=== PATIENT | male | born 1950 | race Caucasian/White ===

== ENCOUNTER 2019-04-11 05:34 | Inpatient (IN) | payer MEDICARE, BC ==
--- NOTE | 2019-03-30 14:20 | HP ---
HISTORY AND PHYSICAL: DATE OF ADMISSION: 04/11/19 He will be coming into [facility] on 04/11/19 for a left total hip replacement. CHIEF COMPLAINT: Left hip region pain laterally and some in the groin and marked limp and limited walking activities over the last couple years. HISTORY OF PRESENT ILLNESS: He is status post a right total hip replacement in 2011. 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 He is on his feet all day and he has had increasing problems for the last couple of years. Left hip replacement was requested and recommended. PAST MEDICAL HISTORY: His functional status is that he can walk up 2 flights of stairs without chest pain, without shortness of breath. No diabetes. He has had prostate cancer with removal and his followup has been very benign. No past heart attack. No chest pain. No pulmonary problems. He thinks he may have had bronchitis and he was recently put on Symbicort. MEDICATIONS: His other medications include: 1. Hydrochlorothiazide. 2. Simvastatin. 3. Amlodipine 5 mg. 4. Ibuprofen 800 mg t.i.d. as necessary and he tries to avoid the ibuprofen and he will be avoiding it before surgical care. ALLERGIES: No allergies. FAMILY HISTORY: Positive for cancer. Negative for diabetes and cardiac. SOCIAL HISTORY: He gave up smoking in 1982. He has less than 1 alcoholic beverage per week. 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 He lives with his and his 2 sons. PHYSICAL EXAMINATION GENERAL: His gait is antalgic on the left. VITAL SIGNS: Temp 96.9, blood pressure 140/88, pulse 74. Weight 250, height 5 feet 11 inches. HEENT: The head is NC/AT. Cranial nerves are grossly intact. LUNGS: Clear bilaterally. HEART: Regular. S1, S2 normal. No murmurs or gallops. ABDOMEN: Soft, nontender. No organomegaly is appreciated. EXTREMITIES: Straight leg raising is easy on the right and it is painful on the left producing some anterolateral left hip discomfort. Left hip abduction is 25 degrees with lateral hip pain. His forward elevation is just 40 to 50 degrees with anterolateral left hip pain as well and his rotations are very limited. ER 10, IR -10. The left foot pulse is intact. No swelling of the knees. No swelling of ankles and feet. DIAGNOSTIC STUDIES: Radiographs show [id number] arthritis of the left hip and osteophyte formation. IMPRESSION: Severe arthritis of the left hip. PLAN: Left total hip replacement. The goals, risks, and complications of the surgical care were reviewed with him today and his questions were answered and we will proceed with it on 04/11/19. [id number]/[facility] #: [id number] WILFREDO
[~2019-04-11 05:34] MED LIST: Buffered Lidocaine 1% SYRIN* 1 ML/SYRINGE INTRADERM ONE; Lactated Ringers 1000 ML Bag* 1,000 ML IV SCH; Tranexamic Acid 1,000 MG in NS 0.9% 50 ML* (outpatient use) IV SCH
--- OUTSIDE RECORDS SUMMARY | 2019-04-11 05:39 | XMS REPORT | Continuity of Care Document ---
:1950 External Reference #:[id number] Author Name Farshad Mckeon M.D. (transmitted by agent of provider Jayashree Murrell) Address [address] [place] [address] Care Team Providers Name Role Phone Mehdi Gurrola MD - Internal Care Team Information [place] Tax [employer] Medicine Problems Description No Information Available Social History Type Date Description Comments Sex Unknown ETOH Use Rarely consumes alcohol Tobacco Use Start: Unknown End: Patient is a former smoker quit in 1981 Unknown Smoking Status Reviewed: 03/30/19 Patient is a former smoker quit in 1981 Exercise Type/Frequency Exercises regularly Allergies, Adverse Reactions, Alerts Description No Known Drug Allergies Medications Active Medications SIG Qnty Indications Ordering Date Provider Ibuprofen po tid prn 90tabs Farshad Mckeon, 01/01/2011 800mg Tablets M.D. Amlodipine Besylate Unknown Simvastatin 1 by mouth Unknown 40mg Tablets every day Probiotic 1 by mouth Unknown Capsules every day Hydrochlorothiazide 1 by mouth Unknown 25mg Tablets every day Multi Vitamin Daily 1 by mouth Unknown Tablets every day Teague 3 Unknown Symbicort inhale 2 puff Unknown 80-4.5mcg/Act Aerosol twice daily; rinse mouth after use Immunizations Description No Information Available Vital Signs Date Vital Result Comment 03/30/2019 10:53am Height 72 inches 6'0" Weight 250.00 lb Heart Rate 74 /min BP Systolic 140 mmHg BP Diastolic 88 mmHg Respiratory Rate 16 /min Body Temperature 96.9 F Pain Level 4 BMI (Body Mass Index) 33.9 kg/m2 01/05/2019 8:37am Height 72 inches 6'0" Weight 256.00 lb Heart Rate 76 /min BP Systolic 160 mmHg BP Diastolic 92 mmHg Respiratory Rate 14 /min Pain Level 4 BMI (Body Mass Index) 34.7 kg/m2 Results Test Acquired Date Facility Test Result H/L Range Note Urinalysis Profile 03/15/2019 [facility] Urine Color Yellow [address] [place] [address] [phone] Urine Appearance Clear Urine Specific Gilchrist 1.019 Normal 1.010-1.030 Urine pH 6.0 Normal 5-9 Urine Urobilinogen Negative Negative Urine Ketones Negative Negative Urine Protein Negative Negative Urine Leukocytes Negative Negative Urine Blood Negative Negative * * Abnormal Negative 1 Urine Nitrite Negative Negative Urine Bilirubin Negative Negative Urine Glucose Negative Negative CBC Auto 03/15/2019 [facility] White Blood 7.7 10^3/uL Normal 3.5-10.[address] [place] [address] [phone] Red Blood Count 5.39 10^6/uL Normal 4.18-5.48 Hemoglobin 15.8 g/dL Normal 14.0-18.0 Hematocrit 46 % Normal 42-52 Mean Corpuscular Volume 85 fL Normal 80-94 Mean Corpuscular Hemoglobin 29 pg Normal 27-31 Mean Corpuscular HGB Conc 34 g/dL Normal 31-36 Red Cell Distribution Width 14 % Normal 10-15 Platelet Count 221 10^3/uL Normal 150-450 Mean Platelet Volume 8.7 fL Normal 7.4-10.4 Abs Neutrophils 4.8 10^3/uL Normal 1.5-7.7 Abs Lymphocytes 2.0 10^3/uL Normal 1.0-4.8 Abs Monocytes 0.7 10^3/uL Normal 0-0.8 Abs Eosinophils 0.1 10^3/uL Normal 0-0.6 Abs Basophils 0.0 10^3/uL Normal 0-0.2 Abs Nucleated RBC 0.0 10^3/uL Granulocyte % 62.3 % Lymphocyte % 26.2 % Monocyte % 9.4 % Eosinophil % 1.7 % Basophil % 0.4 % Nucleated Red Blood Cells % 0.1 Inr/Protime 03/15/2019 [facility] Inr 0.97 Normal 0.82-1.[address] [place] [address] [phone] Comp Metabolic 03/15/2019 [facility] Sodium 137 mmol/L Normal 135-[address] [place] [address] [phone] Potassium 4.1 mmol/L Normal 3.5-5.0 Chloride 101 mmol/L Normal 101-111 Co2 Carbon Dioxide 26 mmol/L Normal 22-32 Anion Gap 10 mmol/L Normal 2-11 Glucose 94 mg/dL Normal 70-100 Blood Urea Nitrogen 18 mg/dL Normal 6-24 Creatinine 0.71 mg/dL Normal 0.67-1.17 BUN/Creatinine Ratio 25.4 High 8-20 Calcium 9.9 mg/dL Normal 8.6-10.3 Total Protein 7.5 g/dL Normal 6.4-8.9 Albumin 4.6 g/dL Normal 3.2-5.2 Globulin 2.9 g/dL Normal 2-4 Albumin/Globulin Ratio 1.6 Normal 1-3 Total Bilirubin 0.70 mg/dL Normal 0.2-1.0 Alkaline Phosphatase 80 U/L Normal 34-104 Alt 51 U/L Normal 7-52 Ast 29 U/L Normal 13-39 Egfr Non- 110.3 >60 Egfr 133.5 >60 3 1 *Ascorbic acid is present which may interfere with detection of blood. 2 Standard intensity warfarin therapeutic range: 2.0-3.0 High intensity warfarin therapeutic range: 2.5-3.5 3 Because ethnic data is not always readily available, this report includes an eGFR for both -Americans and non- Americans. The National Kidney Disease Education Program (NKDEP) does not endorse the use of the MDRD equation for patients that are not between the ages of 18 and 70, are , have extremes of body size, muscle mass, or nutritional status, or are non- or non-. According to the National Kidney Foundation, irrespective of diagnosis, the stage of the disease is based on the level of kidney function: Stage Description GFR(mL/min/1.73 m(2)) 1 Kidney damage with normal or decreased GFR 90 2 Kidney damage with mild decrease in GFR 60-89 3 Moderate decrease in GFR 30-59 4 Severe decrease in GFR 15-29 5 Kidney failure <15 (or dialysis) Procedures Description No Information Available Medical Devices Description No Information Available Encounters Type Date Location Provider Dx Diagnosis Office Visit 01/05/2019 [facility] Farshad Mckeon M.D. M16.12 Unilateral primary 8:00a at [place] osteoarthritis, left hip Assessments Date Code Description Provider 03/30/2019 M16.12 Unilateral primary osteoarthritis, left hip Farshad Mckeon M.D. 03/30/2019 Z96.641 Presence of right artificial hip joint Farshad Mckeon M.D. 01/05/2019 M16.12 Unilateral primary osteoarthritis, left hip Farshad Mckeon M.D. Plan of Treatment Future Appointment(s):04/27/2019 10:45 am - Farshad Mckeon M.D. at [facility] at Vxggcq1104/11/2019 11:00 am - Farshad Mckeon M.D. at [facility] at Qhnrcd2203/30/2019 - Farshad Mckeon M.D.M16.12 Unilateral primary osteoarthritis, left hipFollow up:Follow up: Left total hip 04/11/19 Stay active until then and ertxjF09.641 Presence of right artificial hip joint Functional Status Description No Information Available Mental Status Description No Information Available Referrals Description No Information Available
--- OUTSIDE RECORDS SUMMARY | 2019-04-11 05:39 | XMS REPORT | Continuity of Care Document ---
:1950 External Reference #:[id number] Author Name Maite Rojas (transmitted by agent of provider Abiodun Lamar) Address [address] [place] [id number] Care Team Providers Name Role Phone Casper Naranjo MD - Urology Care Team Information Dock Boss [phone] [facility] - Care Team Information Dock Boss [phone] Gastroenterology Problems Active Problems Provider Date Benign essential hypertension Mehdi Gurrola M.D. Onset: 06/19/2006 Carcinoma in situ of prostate Mehdi Gurrola M.D. Onset: 06/19/2006 Pure hypercholesterolemia Mehdi Gurrola M.D. Onset: 07/12/2007 Localized, primary osteoarthritis of the Mehdi Gurrola M.D. Onset: 2010 pelvic region and thigh History of malignant neoplasm of prostate Mehdi Gurrola M.D. Onset: 2015 Social History Type Date Description Comments Sex Unknown Tobacco Use Start: Unknown End: Unknown Does Not Smoke Cigarettes Smoking Status Reviewed: 02/28/19 Does Not Smoke Cigarettes ETOH Use Rare Alcohol Use Recreational Drug Use Never Used Drugs Tobacco Use Start: Unknown Non Smoker Allergies, Adverse Reactions, Alerts Active Allergies Reaction Severity Comments Date No Known Drug Allergy 05/24/2010 Medications Active Medications SIG Qnty Indications Ordering Date Provider Symbicort 2 puffs 2x/day; 20.4gm Brianda, 02/28/2019 80-4.5mcg/Act Aerosol gargle after use Erlin Rascon Amlodipine Besylate Take One Tablet 90tabs I10 Silcoff, 05/29/2017 5mg Tablets By Mouth Once Tianna Harding Daily For High Blood Pressure Simvastatin take one half 90tabs E78.00 Silco, 07/16/2016 40mg Tablets tablet by mouth Tianna Harding every day for high cholesterol Ibuprofen 1 by mouth every 90tabs M25.552 Silco, 07/16/2016 800mg Tablets 8 hours as needed Tianna Harding for hip pain Probiotic daily Unknown 05/13/2015 Capsules Hydrochlorothiazide Take One Tablet 90tabs I10 , 06/20/2011 25mg By Mouth Every Tianna Harding Tablets Morning For High Blood Pressure Vitamin C 1 po qd OTC Unknown 03/31/2011 500mg Tablets [place] III Epa+Dha One Capsule PO OTC Unknown 03/31/2011 1000mg/200mg Daily Capsules Multivitamin & Mineral one tab daily Silco, 05/23/2010 Tianna Harding Medications Administered in Office Medication SIG Qnty Indications Ordering Provider Date H1N1 Swine Flu Vaccine Mehdi Gurrola M.D. 05/11/2009 Injection Immunizations CPT Code Status Date Vaccine Lot # [id number] Given 02/16/2019 Shingrix Zoster (Shingles) Vaccine (HZV) Recomb,Subnit,Adjuvanted 84772 Given 01/28/2019 Influenza Virus Vaccine, Quadrivalent, Split, Preservative Free 95301 Given 03/18/2018 Pneumococcal Immunization [id number] 90531 Given 03/18/2018 Td Immunization [id number] 00317 Given 02/20/2018 Influenza Vaccine Split Virus Preservative Free [place] Use 97111 Given 03/05/2017 Influenza Vaccine Split Virus Preservative Free Im Use 09567 Given 07/16/2016 Prevnar 13 [id number] 76808 Given 03/18/2016 Influenza Virus Vaccine, Quadrivalent, Split, Preservative Free 02034 Given 04/27/2015 Flu, Split Virus 3Yrs 25650 Given 02/10/2014 Flu, Split Virus 3Yrs 62424 Given 01/21/2012 Flu, Split Virus 3Yrs [id number] 58667 Given 04/01/2011 Zostavax [id number] 12998 Given 04/01/2011 Flu, Split Virus 3Yrs [id number] 59522 Given 01/18/2010 Flu, Split Virus 3Yrs 19971 Given 05/11/2009 Flu Vaccine; Split Virus [employer] [id number] 22230 Given 08/24/2007 Adacel or Boostrix, TDaP [id number] Vital Signs Date Vital Result Comment 02/28/2019 9:04am BP Systolic 136 mmHg BP Diastolic 80 mmHg Height 71.5 inches 5'11.50" Weight 251.00 lb BMI (Body Mass Index) 34.5 kg/m2 10/11/2018 10:17am BP Systolic 148 mmHg BP Diastolic 82 mmHg BP Systolic Recheck 134 mmHg R arm sitting BP Diastolic Recheck 86 mmHg R arm sitting Heart Rate 64 /min reg Respiratory Rate 14 /min not laboured Height 71.75 inches 5'11.75" Weight 254.00 lb BMI (Body Mass Index) 34.7 kg/m2 Results Description No Information Available Procedures Date Code Description Status 02/28/2019 28039U Visual Acuity Screening Test - for Dot exams Completed 10/11/2018 12272 Electrocardiogram Complete Completed 09/29/2018 40287256 Colonoscopy Completed Medical Devices Description No Information Available Encounters Description No Information Available Assessments Date Code Description Provider 02/28/2019 Z02.4 Encounter for examination for driving Abiodun Lamar D.O. license 02/28/2019 I10 Essential (primary) hypertension Abiodun Lamar D.O. 02/28/2019 E78.00 Pure hypercholesterolemia, unspecified Abiodun Lamar D.O. 02/28/2019 Z68.34 Body mass index (BMI) 34.0-34.9, adult Abiodun Lamar D.O. 10/11/2018 Z00.01 Encounter for general adult medical Mehdi Gurrola M.D. examination with abnorma 10/11/2018 I10 Essential (primary) hypertension Mehdi Gurrola M.D. 10/11/2018 E78.00 Pure hypercholesterolemia, unspecified Mehdi Gurrola M.D. 10/11/2018 Z86.010 Personal history of colonic polyps Mehdi Gurrola M.D. 10/11/2018 B37.2 Candidiasis of skin and nail Mehdi Gurrola M.D. 10/11/2018 M25.552 Pain in left hip Mehdi Gurrola M.D. 10/11/2018 Z68.34 Body mass index (BMI) 34.0-34.9, adult Mehdi Gurrola M.D. Plan of Treatment Future Appointment(s):04/06/2019 9:40 am - Karen Sweet PA at [facility] Vjtosy9402/2019 - Abiodun Lamar D.O.Z02.4 Encounter for examination for driving licenseFollow up:As scheduled in March 2019 [address] 6 months DM w/ HSI10 Essential (primary) iguvrqkflcmzI52.00 Pure hypercholesterolemia, zyjbcvixfnoK74.34 Body mass index (BMI) 34.0-34.9, adult Functional Status Description No Information Available Mental Status Description No Information Available Referrals Description No Information Available
--- OUTSIDE RECORDS SUMMARY | 2019-04-11 05:39 | XMS REPORT | Continuity of Care Document ---
:1950 External Reference #:[id number] Author Name Abiodun Lamar D.O. Address [address] [place] [id number] Care Team Providers Name Role Phone Casper Naranjo MD - Urology Care Team Information Cinnamon Grinder [phone] [facility] - Care Team Information Cinnamon Grinder [phone] Gastroenterology Problems Active Problems Provider Date Benign [...] Pressure Simvastatin take one half 90tabs E78.00 Silcoff, 07/16/2016 40mg Tablets tablet by mouth Tianna Harding every day for high cholesterol Ibuprofen 1 by mouth every 90tabs M25.552 co, 07/16/2016 800mg Tablets 8 hours as needed Tianna Harding for hip pain Probiotic daily Unknown 05/13/2015 Capsules Hydrochlorothiazide Take One Tablet 90tabs I10 , 06/20/2011 25mg By Mouth Every Tianna Harding Tablets Morning For High Blood Pressure Vitamin C 1 po qd OTC Unknown 03/31/2011 500mg Tablets [place] III Epa+Dha One Capsule PO OTC Unknown 03/31/2011 1000mg/200mg Daily Capsules Multivitamin & Mineral one tab daily Silco, 05/23/2010 Tianna Harding Medications Administered in Office Medication SIG Qnty Indications Ordering Provider Date H1N1 Swine Flu Vaccine Mehdi Gurrola M.D. 05/11/2009 Injection Immunizations CPT Code Status Date Vaccine Lot # [id number] Given 02/16/2019 Shingrix Zoster (Shingles) Vaccine (HZV) Recomb,Subnit,Adjuvanted 82742 Given 01/28/2019 Influenza Virus Vaccine, Quadrivalent, Split, Preservative Free 09889 Given 03/18/2018 Pneumococcal Immunization [id number] 67387 Given 03/18/2018 Td Immunization [id number] 36419 Given 02/20/2018 Influenza Vaccine Split Virus Preservative Free Im Use 02514 Given 03/05/2017 Influenza Vaccine Split Virus Preservative Free [place] Use 36156 Given 07/16/2016 Prevnar 13 [id number] 05357 Given 03/18/2016 Influenza Virus Vaccine, Quadrivalent, Split, Preservative Free 26601 Given 04/27/2015 Flu, Split Virus 3Yrs 36367 Given 02/10/2014 Flu, Split Virus 3Yrs 78271 Given 01/21/2012 Flu, Split Virus 3Yrs [id number] 42691 Given 04/01/2011 Zostavax [id number] 07509 Given 04/01/2011 Flu, Split Virus 3Yrs [id number] 88136 Given 01/18/2010 Flu, Split Virus 3Yrs 36707 Given 05/11/2009 Flu Vaccine; Split Virus [employer] [id number] 55352 Given 08/24/2007 Adacel or Boostrix, TDaP [id number] Vital Signs Date Vital Result Comment 02/28/2019 [...] Available Procedures Date Code Description Status 02/28/2019 59633N Visual Acuity Screening Test - for Dot exams Completed 10/11/2018 23527 Electrocardiogram Complete Completed 09/29/2018 83779449 Colonoscopy Completed Medical Devices Description No Information [...] am - Karen Sweet PA at [facility] Imtxqd1902/2019 - Abiodun Lamar D.O.Z02.4 Encounter for examination for driving licenseFollow up:As scheduled in March 2019 [address] 6 months DMHM w/ HSI10 Essential (primary) tvpliabtcmbhF92.00 Pure hypercholesterolemia, jeprlhhyxuiT09.34 Body mass index (BMI) 34.0-34.9, adult Functional Status Description No Information Available Mental Status Description No Information Available Referrals Description No Information Available
--- OUTSIDE RECORDS SUMMARY | 2019-04-11 05:39 | XMS REPORT | Continuity of Care Document ---
:1950 External Reference #:[id number] Author Name Abiodun Lamar D.O. Address [address] [place] [phone] Care Team Providers Name Role Phone Casper Naranjo MD - Urology Care Team Information Assisted Living Nursing Director [phone] [facility] - Care Team Information Assisted Living Nursing Director [phone] Gastroenterology Problems Active Problems Provider Date Benign [...] po qd OTC Unknown 03/31/2011 500mg Tablets [place] III Epa+Dha One Capsule PO OTC Unknown 03/31/2011 1000mg/200mg Daily Capsules Multivitamin & Mineral one tab daily Silco, 05/23/2010 Tianna Harding Medications Administered in Office Medication SIG Qnty Indications Ordering Provider Date H1N1 Swine Flu Vaccine Mehdi Gurrola M.D. 05/11/2009 Injection Immunizations CPT Code Status Date Vaccine Lot # [id number] Given 02/16/2019 Shingrix Zoster (Shingles) Vaccine (HZV) Recomb,Subnit,Adjuvanted 73370 Given 01/28/2019 Influenza Virus Vaccine, Quadrivalent, Split, Preservative Free 73277 Given 03/18/2018 Pneumococcal Immunization [id number] 61774 Given 03/18/2018 Td Immunization [id number] 20180 Given 02/20/2018 Influenza Vaccine Split Virus Preservative Free Im Use 17317 Given 03/05/2017 Influenza Vaccine Split Virus Preservative Free Im Use 88179 Given 07/16/2016 Prevnar 13 [id number] 92623 Given 03/18/2016 Influenza Virus Vaccine, Quadrivalent, Split, Preservative Free 33439 Given 04/27/2015 Flu, Split Virus 3Yrs 60971 Given 02/10/2014 Flu, Split Virus 3Yrs 39990 Given 01/21/2012 Flu, Split Virus 3Yrs [id number] 04891 Given 04/01/2011 Zostavax [id number] 56427 Given 04/01/2011 Flu, Split Virus 3Yrs [id number] 87560 Given 01/18/2010 Flu, Split Virus 3Yrs 07737 Given 05/11/2009 Flu Vaccine; Split Virus Numerous [id number] 79806 Given 08/24/2007 Adacel or Boostrix, TDaP [id number] Vital Signs Date Vital Result Comment 02/28/2019 [...] Available Procedures Date Code Description Status 02/28/2019 51212V Visual Acuity Screening Test - for Dot exams Completed 10/11/2018 49111 Electrocardiogram Complete Completed 09/29/2018 06817920 Colonoscopy Completed Medical Devices Description No Information [...] am - Karen Sweet PA at [facility] Esykht4402/2019 - Abiodun Lamar D.O.Z02.4 Encounter for examination for driving licenseFollow up:As scheduled in March 2019 [address] 6 months DMHM w/ HSI10 Essential (primary) umqelmwrmcikU65.00 Pure hypercholesterolemia, tzmwxiymirpF05.34 Body mass index (BMI) 34.0-34.9, adult Functional Status Description No Information Available Mental Status Description No Information Available Referrals Description No Information Available
--- OUTSIDE RECORDS SUMMARY | 2019-04-11 05:39 | XMS REPORT | Continuity of Care Document ---
:1950 External Reference #:[id number] Author Name Karen Sweet PA (transmitted by agent of provider Mehdi Gurrola) Address [address] [place] [address], [facility] [address] [place] [address] Care Team Providers Name Role Phone Casper Naranjo MD - Urology Care Team Information Steaming Cabinet Tender [phone] Chris GI Department - Care Team Information Steaming Cabinet Tender [phone] Gastroenterology Farshad Mckeon MD - Orthopaedic Care Team Information Steaming Cabinet Tender [phone] Surgery Problems Active Problems Provider Date Benign essential [...] Does Not Smoke Cigarettes Smoking Status Reviewed: 03/15/19 Does Not Smoke Cigarettes ETOH Use Rare Alcohol Use Recreational Drug Use Never Used Drugs Tobacco Use Start: Unknown Non Smoker Allergies, Adverse Reactions, Alerts Active Allergies Reaction Severity Comments Date No Known Drug Allergy 05/24/2010 Medications Active Medications SIG Qnty Indications Ordering Date Provider Symbicort 2 puffs 2x/day; 20.4gm Sopchak, 02/28/2019 80-4.5mcg/Act Aerosol gargle after use Erlin Rascon Amlodipine Besylate Take One Tablet 90tabs I10 Silcoff, 05/29/2017 5mg Tablets By Mouth Once Tianna Harding Daily For High Blood Pressure Simvastatin take one half 90tabs E78.00 Silcoff, 07/16/2016 40mg Tablets tablet by mouth Tianna Harding every day for high cholesterol Ibuprofen 1 by mouth every 90tabs M25.552 Silcoff, 07/16/2016 800mg Tablets 8 hours as needed Tianna Harding for hip pain Probiotic daily Unknown 05/13/2015 Capsules Hydrochlorothiazide Take One Tablet 90tabs I10 Silcoff, 06/20/2011 25mg By Mouth Every Tianna Harding Tablets Morning For High Blood Pressure Vitamin C 1 po qd OTC Unknown 03/31/2011 500mg Tablets Cody III Epa+Dha One Capsule PO OTC Unknown 03/31/2011 1000mg/200mg Daily Capsules Multivitamin & Mineral one tab daily Silco, 05/23/2010 Tianna Harding Medications Administered in Office Medication SIG Qnty Indications Ordering Provider Date H1N1 Swine Flu Vaccine Mehdi Gurrola M.D. 05/11/2009 Injection Immunizations CPT Code Status Date Vaccine Lot # [id number] Given 02/16/2019 Shingrix Zoster (Shingles) Vaccine (HZV) Recomb,Subnit,Adjuvanted 11243 Given 01/28/2019 Influenza Virus Vaccine, Quadrivalent, Split, Preservative Free 70120 Given 03/18/2018 Pneumococcal Immunization [id number] 48327 Given 03/18/2018 Td Immunization [id number] 39626 Given 02/20/2018 Influenza Vaccine Split Virus Preservative Free Im Use (hi-dose) 54798 Given 03/05/2017 Influenza Vaccine Split Virus Preservative Free Im Use (hi-dose) 30039 Given 07/16/2016 Prevnar 13 [id number] 83932 Given 03/18/2016 Influenza Virus Vaccine, Quadrivalent, Split, Preservative Free 09169 Given 04/27/2015 Flu, Split Virus 3Yrs 95567 Given 02/10/2014 Flu, Split Virus 3Yrs 37658 Given 01/21/2012 Flu, Split Virus 3Yrs [id number] 09245 Given 04/01/2011 Zostavax [id number] 35019 Given 04/01/2011 Flu, Split Virus 3Yrs [id number] 49387 Given 01/18/2010 Flu, Split Virus 3Yrs 59805 Given 05/11/2009 Flu Vaccine; Split Virus WorldWinger [id number] 50022 Given 08/24/2007 Adacel or Boostrix, TDaP [id number] Vital Signs Date Vital Result Comment 03/15/2019 10:29am BP Systolic 134 mmHg BP Diastolic 70 mmHg Weight 256.00 lb 02/28/2019 9:04am BP Systolic 136 mmHg BP Diastolic 80 mmHg Height 71.5 inches 5'11.50" Weight 251.00 lb BMI (Body Mass Index) 34.5 kg/m2 Results Test Acquired Date Facility Test Result H/L Range Note Ua Inhouse 02/28/2019 In House Ua Glucose - 1 Ua Bilirubin - Ua Ketones - Ua Specific [place] 1.015 Ua Blood - Ua PH 6.0 Ua Protein tr Ua Urobilinogen - Ua Nitrite - Ua Leukocytes - 1 void, clear, gold Procedures Date Code Description Status 02/28/2019 77858C Visual Acuity Screening Test - for Dot exams Completed 10/11/2018 68314 Electrocardiogram Complete Completed 09/29/2018 78982977 Colonoscopy Completed Medical Devices Description No Information Available Encounters Type Date Location Provider Dx Diagnosis Office Visit 03/15/2019 Main Office Karen Sweet PA Z01.818 Encounter for other 10:05a preprocedural examination M16.12 Unilateral primary osteoarthritis, left hip I10 Essential (primary) hypertension R05 Cough Office Visit 02/28/2019 8:55a Main Office Abiodun Lamar, Z02.4 Encounter for D.O. examination for driving license I10 Essential (primary) hypertension E78.00 Pure hypercholesterolemia, unspecified Z68.34 Body mass index (BMI) 34.0-34.9, adult Assessments Date Code Description Provider 03/15/2019 Z01.818 Encounter for other preprocedural Karen Sweet PA examination 03/15/2019 M16.12 Unilateral primary osteoarthritis, left hip Karen Sweet PA 03/15/2019 I10 Essential (primary) hypertension Karen Sweet PA 03/15/2019 R05 Cough Karen Sweet PA 02/28/2019 Z02.4 Encounter for examination for driving [...] Mehdi Gurrola M.D. Plan of Treatment Future Appointment(s):02/13/2020 8:55 am - Abiodun Lamar D.O. at Main [id number]/15/2019 - Karen Sweet, PAZ01.818 Encounter for other preprocedural examinationComments:Patient is at average risk for surgery, and is cleared for planned procedure without additional cardiac testing based on ACC/AHA guidelines (patient with good functional capacity), provided labs are within acceptable range.Patient has no prior anesthetic related complications.He was advised to inform the surgeon of any acute illness which may occur between now and surgical date. This consultation has been faxed to the referring physician.Studies:EKG dated 10/11/18 - Sinus rhythm with borderline LAD,no significant change from 06/10/13. Vent rate 64, Maye 152, QRSd 89, QT/QTc 395/405 , P-R-T axes 43/-29/36.Labs - CMP, CBC, INR, UA drawn in office today. Results pending, will be copied to surgeon.M16.12 Unilateral primary osteoarthritis, left hipComments:Left total hip replacement to be done as above.I10 Essential ( primary) hypertensionComments:Good control on current meds, continue same.R05 CoughComments:Continue symbicort 160mg for winter months, taper off with lower dose in spring. Functional Status Description No Information Available Mental Status Description No Information Available Referrals Description No Information Available
--- OUTSIDE RECORDS SUMMARY | 2019-04-11 05:39 | XMS REPORT | Continuity of Care Document ---
:1950 External Reference #:[id number] Author Name Jael Cueva MD, [facility] (transmitted by agent of provider Genet Loja) Address [address] [address] Care Team Providers Name Role Phone Mehdi Gurrola MD - Internal Care Team Information Escort Service Attendant Medicine Problems Description No Information Available Social [...] 1 by mouth Unknown Tablets every day [place] 3 Unknown Symbicort inhale 2 puff Unknown [...] Test Result H/L Range Note Urinalysis Profile 03/30/2019 [facility] Urine Color Yellow [address] [place] [address] [phone] Urine Appearance Clear Urine Specific [place] 1.020 Normal 1.010-1.030 Urine pH 5.0 Normal 5-9 Urine Urobilinogen Negative Negative Urine Ketones Negative Negative Urine Protein Negative Negative Urine Leukocytes Negative Negative Urine Blood Negative Negative * * Abnormal Negative 1 Urine Nitrite Negative Negative Urine Bilirubin Negative Negative Urine Glucose Negative Negative Inr/Protime 03/30/2019 [facility] Inr 0.99 Normal 0.82-1.[address] [place] [address] [phone] Laboratory test 03/30/2019 [facility] Partial 35.1 Normal 26.0 -38.[address] [place] [address] Time PTT [phone] Type & Screen 03/30/2019 [facility] Patient A Positive [address] [place] [place] [address] [phone] Antibody Screen NEGATIVE Urine Culture And 03/30/2019 [facility] Urine Culture SEE RESULT [address] [place] [address] [phone] Urinalysis Profile 03/15/2019 [facility] Urine Color Yellow [address] [place] [address] [phone] Urine Appearance Clear Urine Specific [place] 1.019 Normal 1.010-1.030 Urine pH 6.0 Normal 5-9 Urine Urobilinogen Negative Negative Urine Ketones Negative Negative Urine Protein Negative Negative Urine Leukocytes Negative Negative Urine Blood Negative Negative * * Abnormal Negative 4 Urine Nitrite Negative Negative Urine Bilirubin Negative Negative Urine Glucose Negative Negative CBC Auto 03/15/2019 [facility] White Blood 7.7 10^3/uL Normal 3.5-10.[address] Count [place], [place] [address] [phone] Red Blood Count 5.39 10^6/uL Normal 4.18-5.48 [...] Red Blood Cells % 0.1 Inr/Protime 03/15/2019 [facility] Inr 0.97 Normal 0.82-1.09 5 [address] [place] [address] [phone] Comp Metabolic 03/15/2019 [facility] Sodium 137 mmol/L Normal 135-145 Panel [address] [place] [address] [phone] Potassium 4.1 mmol/L Normal 3.5-5.0 Chloride 101 [...] Egfr Non- 110.3 >60 Egfr 133.5 >60 6 1 *Ascorbic acid is present which may interfere with detection of blood. 2 Standard intensity warfarin therapeutic range: 2.0-3.0 High intensity warfarin therapeutic range: 2.5-3.5 3 SEE RESULT BELOW Name: RONDA COLBY : [address]: Farshad Mckeon MD Acct: [id number] Unit: [id number] AGE: 68 Location: [facility] Re03/30/19 SEX: M Status: REG REF SPEC: [id number] ARASH: 03/30/19-1630 [facility] DR: Farshad Mckeon MD REQ: [id number] RECD: 03/30/19 STATUS: COMP _ SOURCE: URINE SPDESC: ORDERED: Urine Culture QUERIES: Urine Source: Random Procedure Result Reported Site Urine Culture Final 03/31/19- 1419 ML No Growth (<1,000 CFU/mL) * ML - Main Lab . END OF REPORT DEPARTMENT OF PATHOLOGY, [address] [place] [address] Og Diaz M.D. Director [facility] # [id number] 4 *Ascorbic acid is present which may interfere with detection of blood. 5 Standard intensity warfarin therapeutic range: 2.0-3.0 High intensity warfarin therapeutic range: 2.5-3.5 6 Because ethnic data is not always readily [...] Location Provider Dx Diagnosis Office Visit 01/05/2019 [facility] Farshad Mckeon M.D. M16.12 Unilateral primary 8:00a at [place] osteoarthritis, left hip Assessments Date Code Description Provider 03/30/2019 M16.12 Unilateral primary osteoarthritis, left hip Farshad Mckeon M.D. 03/30/2019 Z96.641 Presence of right artificial hip joint Farshad Mckeon M.D. 01/05/2019 M16.12 Unilateral primary osteoarthritis, left hip Farshad Mckeon M.D. Plan of Treatment Future Appointment(s):04/27/2019 10:45 am - Farshad Mckeon M.D. at [facility] at Qixomx3204/11/2019 11:00 am - Farshad Mckeon M.D. at [facility] at [id number]/30/2019 - Farshad Mckeon M.D.M16.12 Unilateral primary osteoarthritis, left hipFollow up:Follow up: Left total hip 04/11/19 Stay active until then and iwpoxJ20.641 Presence of right artificial hip joint Functional Status Description No Information Available Mental Status Description No Information Available Referrals Description No Information Available
[2019-04-11] MEDS ORDERED: ceFAZolin 2 GM in NS PREMIX(*) 2 GM/100 ML BAG IVPB ONE (05:55)
[2019-04-11] MEDS ORDERED: Lactated Ringers 1000 ML Bag* 1,000 ML IV SCH (06:00)
[2019-04-11] MEDS ORDERED: fentaNYL* 50 MCG/ML 2 ML VIAL (100 MCG VIAL) ONE (07:14)
[2019-04-11] MEDS ORDERED: Dexmedetomidine* 200 MCG/2 ML 2 ML VIAL ONE (07:14)
[2019-04-11] MEDS ORDERED: ROPIVACAINE 5 MG/ML 30 ML BTL (0.5%) ONE (07:14)
[2019-04-11] MEDS ORDERED: Midazolam* 1 MG/ML 2 ML VIAL (2 MG) ONE ×3 (07:15→10:08)
[2019-04-11] MEDS ORDERED: Lidocaine 2% PF * 5 ML VIAL ONE ×2 (07:15→07:44)
[2019-04-11] MEDS ORDERED: Bupivacaine 0.5% SDV PF* 30ML VIAL ONE (07:15)
[2019-04-11] MEDS ORDERED: Bupivacaine 0.25% EPI 200,000* 30 ML SDV ONE (07:29)
[2019-04-11] MEDS ORDERED: Propofol* 10 MG/ML 20 ML BTL ONE ×2 (07:44→07:58)
[2019-04-11] MEDS ORDERED: Propofol* 500 MG/50 ML BTL ONE (07:46)
[2019-04-11] MEDS ORDERED: Ketorolac INJ* 30 MG/ML 1 ML VIAL IV PRN (08:41)
[2019-04-11] MEDS ORDERED: Naloxone* 0.4 MG/ML 1 ML VIAL IV PRN (08:41)
[2019-04-11] MEDS ORDERED: Acetaminophen IV 1GM/100ML * 10 MG/ML VIAL IVPB ONE (08:41)
[2019-04-11] MEDS ORDERED: Ondansetron INJ* 2 MG/ML VIAL IV PRN ×2 (08:41→10:39)
[2019-04-11] MEDS ORDERED: oxyCODONE TAB* 5 MG TAB PO PRN ×2 (08:41→10:39)
[2019-04-11] MEDS ORDERED: fentaNYL* 50 MCG/ML 2 ML VIAL (100 MCG VIAL) IV PRN (08:41)
[2019-04-11] MEDS ORDERED: Lidocaine 1% w EPI 1:200,000* SDV 30 ML VIAL ONE (10:17)
[2019-04-11] MEDS ORDERED: Bupivacaine 0.5%* 50 ML MDV VIAL ONE (10:17)
[2019-04-11] MEDS ORDERED: Temazepam CAP* 15 MG PO PRN (10:39)
[2019-04-11] MEDS ORDERED: traMADol TAB* 50 MG PO PRN (10:39)
[2019-04-11] MEDS ORDERED: diPHENhydraMINE IV* 50 MG/ML 1 ml VIAL (BENADRYL) IV PRN (10:39)
[2019-04-11] MEDS ORDERED: Cyclobenzaprine TAB* 10 MG PO PRN (10:39)
[2019-04-11] MEDS ORDERED: Ondansetron ODT TAB* 4 MG PO PRN (10:39)
[2019-04-11] MEDS ORDERED: Morphine INJ* 2 MG/ML 1 ML SYRINGE (TWO MG - NEW SYRINGE VERSION) IV PRN (10:39)
[2019-04-11] MEDS ORDERED: Polyethylene Glycol 3350* 17 GM PACKET PO PRN (10:39)
[2019-04-11] MEDS ORDERED: diPHENhydraMINE PO* 25 MG PO PRN (10:39)
[2019-04-11] MEDS ORDERED: Magnesium Hydroxide LIQ* 30 ML UDC PO PRN (10:39)
[2019-04-11] MEDS ORDERED: Ketorolac INJ* 30 MG/ML 1 ML VIAL ONE (10:43)
[2019-04-11] MEDS ORDERED: Acetaminophen IV 1GM/100ML * 100 ML ONE (10:43)
[2019-04-11] MEDS ORDERED: oxyCODONE TAB* 5 MG TAB ONE (10:57)
[2019-04-11] MEDS ORDERED: Metoprolol Tartrate TAB* 25 MG PO ONE (12:27)
[2019-04-11] MEDS: Lactated Ringers 1000 ML Bag* 1,000 ML IV SCH ×2 (12:49→18:25)
[2019-04-11 13:01] LABS: ABS Lymphocytes 1.2 10^3/ul (1.0-4.8); ABS Monocytes 0.8 10^3/ul (0-0.8); ABS Neutrophils 10.5 10^3/ul (1.5-7.7); Eosinophil % 0.3 %; Hematocrit 41 % (42-52); Lymphocyte % 9.6 %; Mean Corpuscular HGB Conc 34 g/dL (31-36); Mean Corpuscular Hemoglobin 29 pg (27-31); Mean Corpuscular Volume 85 fL (80-94); Mean Platelet Volume 8.5 fL (7.4-10.4); Nucleated Red Blood Cells % 0.1; Platelet Count 193 10^3/uL (150-450); Red Blood Count 4.83 10^6 /uL (4.18-5.48); Red Cell Distribution Width 15 % (10-15); White Blood Count 12.5 10^3/uL (3.5-10.8)
[2019-04-11 13:11] LABS: BUN/Creatinine Ratio 19.3 (8-20); EGFR African American 111.5 (>60); EGFR Non-African American 92.1 (>60); Magnesium 2.1 mg/dL (1.9-2.7); Potassium 3.6 mmol/L (3.5-5.0)
[2019-04-11] MEDS: Acetaminophen TAB* 325 MG PO SCH ×2 (13:20→22:04)
[2019-04-11] MEDS ORDERED: Perflutren Lipid Microsphere* 3 ML VIAL ONE (13:39)
[2019-04-11 14:22] LABS: Troponin I 0.01 ng/mL (<0.03)
[2019-04-11] MEDS ORDERED: Potassium Chlor TAB* 20 MEQ TAB.ER PO ONE (14:26)
--- NOTE | 2019-04-11 14:56 | OP ---
OPERATIVE REPORT: DATE OF OPERATION: 04/11/19 SURGICAL CARE: Left hip. DATE OF : 50 SURGEON: Farshad Mckeon MD. ASSISTANTS: 1. LORRAINE Lambert, first grade teacher. 2. Alexandrea James, surgical technologist. ANESTHESIOLOGIST: Dr. Cortes. ANESTHESIA: Spinal with IV sedation. PRE-OP DIAGNOSIS: Severe arthritis of the left hip. POST-OP DIAGNOSIS: Severe arthritis of the left hip. OPERATIVE PROCEDURE: Left total hip replacement. COMPLICATIONS: There were no complications. DRAINS: There were no drains. ESTIMATED BLOOD LOSS: 150 mL. REPLACEMENT: Crystalloid fluids. INDICATIONS: Severe degenerative arthritis of the left hip that has been no longer responsive to non operative care. It has caused marked limp for the last couple of years and continuing pain. He had a right total hip replacement several years ago with good relief of arthritic pain. DESCRIPTION OF PROCEDURE: The patient was brought to the operating room and placed on the operating room table in the supine position and into a seated position for administration of the spinal anesthe tic and returned to the supine position. A Hunter catheter was inserted and the patient was then care fully placed into the left lateral position with his left hip up. Axillary roll was inserted. The p gracia was secured over the ASIS and the sacrum. The downside leg was checked to see if there was no pressure on the peroneal nerve at the fibular head and neck. Blankets were placed between the legs. The pelvis was secured as above and then the groin was carefully sealed off. The left hip was given a preliminary chlorhexidine prep and then a final ChloraPrep from just above the left iliac crest to the foot. After prepping, draping, and sealing off, we did our universal protocol time-out confirmi carlos Quiroz and a plan for left total hip replacement. We all agreed and we proceeded. The hip wa s carefully approached with a slightly curving posterolateral skin incision going from the greater tr ochanter distally for 1 inch to 1-1/2 inches and curving a little bit proximally and posteriorly towa rds the posterior iliac spine for 2-1/2 to 3 inches. Careful hemostasis was checked and achieved thr oughout the case utilizing electrocautery. The skin and subcu were divided carefully down to the ching p fascia. The deep fascia was opened in line with the skin incision including the iliotibial band ov er the greater trochanter. The Charnley retractor was inserted. The gluteus nils was carefully a nd bluntly divided. The gluteus medius was carefully retracted anteriorly exposing the piriformis an d the conjoined tendons. A careful posterior approach to the hip was done. The piriformis was caref ully released from its piriformis fossa insertion after going along the superior border of it and the conjoined tendon carefully released. Each was marked with #2 Surgidac for later repair. The wire mesh filter fabricator ior approach to the hip was done staying subperiosteal on the femoral neck, the acetabulum. The hip was dislocated without difficulty. The femoral neck was marked after measuring with a neck cutting g uide. The femoral head and neck carefully removed. On the acetabular side, we had sharp retractors, Hohmann-type, anteriorly and posteriorly, and blunt retractors superiorly and inferiorly. Posterior inferior osteophyte was removed. The medial osteophyte was removed. Reaming was then done 48 through 60, and at 60, we had nice bleeding subchondral and cancellous bone. The acetabulum was cleaned wit h saline and carefully removed all debris. A 60 Continuum cup was impacted into position in 45 degre es of abduction and 20 degrees of anteversion. A screw was inserted. A posterior elevated liner was inserted with careful rotation. The acetabulum was then packed with a clean lap sponge and attentio n was turned to the femoral side. On the femoral side, we used a canal finder and trochanteric reame r. Broaching was done and at 11, we had nice rotational and axial fit. A trial reducti on was done with a standard neck and a plus 0, 36 head with nice hip extension, negative push/pull in extension, flexion of 90 degrees allowed adduction and internal rotation of 30 to 40 degrees prior t o dislocation. On the femoral side, we used a canal finder. The neck was shortened a little bit mor e. We used trochanteric reamer and broaching was done , and at 11, we did a trial reduct ion with a standard neck, 36 mm plus 0 head with a nice fit, negative push/pull in extension, flexion of 90 degrees allowed adduction and IR of 30 to 40 degrees prior to dislocation. The final componen t was then checked and a size 11 standard M/L taper stent was impacted into position in approximately 20 degrees of anteversion. The trunnion was then cleaned and a plus 0, 36 mm cobalt chrome head was impacted into position. The hip was relocated and a careful closure was commenced. We irrigated sev eral times with saline irrigation, swabbing the tissues with clean lap sponges to remove any debris. Two drill holes were made for the piriformis and conjoint tendon and these were reattached through t he drill holes with the Surgidac sutures. The fascia eduardo and the fascia of the gluteus nils was closed with interrupted #1 Vicryl in [id number] fashion and then 0 Vicryl in figure-of- eight fa shion on the fascia of the gluteus nils. Deep subcu closed with 0 Vicryl, superficial subcu close d with 2-0 Vicryl, and the skin was then closed with sydnie. We infiltrated deep with 0.25% Marcain e with epinephrine, 20 to 30 mL and superficially we infiltrated with 0.5% Marcaine that was diluted one-half and 30 mL of that mixture. The skin was closed with sydnie and the skin was washed and dri ed, and covered with Betadine soaked-released sterile gauze, ABD pads, and then paper tape. The ally ent was returned to the recovery room in stable and satisfactory condition having tolerated the proce dure very well. [id number]/[facility] #: [id number]
--- NOTE | 2019-04-11 15:26 | ECHO ---
*[facility]* [place] [address] Fax #: [phone] Transthoracic Echocardiogram Patient: Alex Quiroz : 1950 Study Date: 04/11/2019 Age: 68 Gender: M HR: 84 bpm Height: 71 in /180.3 cm BSA: 2.31 m^2 Weight: 247.5 lb /112.5 kg BMI: 34.6 kg/m^2 *Higher Education Administrator: Rufina Barrera [facility] *Referring Physician: * Brigida Nogueira *Reading Physician: * Juanito Levy MD Indications: Atrial Fibrillation. History: Risk factors: Former tobacco use. Hypertension. Conclusions Summary: - Left ventricle: The cavity size is normal. Wall thickness is mildly increased. Systolic function is normal. The estimated ejection fraction is 60-65%. Wall motion is normal; there are no regional wall motion abnormalities. - Right ventricle: The cavity size is normal. Systolic function is normal. - Left atrium: The atrium is normal in size. - Pulmonary arteries: Systolic pressure can not be accurately estimated. - No significant valvular abnormalities noted. Recommendations: None prior for comparison. Patient is in atrial fibrillation at time of study. Study data: Transthoracic echocardiogram. Procedure: Transthoracic echocardiography was performed. Image quality was suboptimal. The study was technically limited due to restricted patient mobility. Intravenous Definity , 3.5 mlswas administered. Complete 2D, spectral Doppler, and color flow Doppler. Location: Bedside. Patient status: Inpatient. Patient room number: 350. Rhythm: Atrial fibrillation. Findings Left ventricle: The cavity size is normal. Wall thickness is mildly increased. Systolic function is normal. The estimated ejection fraction is 60-65%. Wall motion is normal; there are no regional wall motion abnormalities. Left ventricular diastolic function parameters are indeterminate. Right ventricle: The cavity size is normal. Systolic function is normal. Left atrium: The atrium is normal in size. Right atrium: The atrium is normal in size. Mitral valve: The leaflets are normal thickness. There is no evidence of stenosis. There is no significant regurgitation. Aortic valve: The leaflets are normal thickness. There is no evidence of stenosis. There is no significant regurgitation. Tricuspid valve: The leaflets are normal thickness. There is no evidence of stenosis. There is no significant regurgitation. Pulmonic valve: Not well visualized. There is no significant regurgitation. Aorta: Aortic root: The aortic root is upper normal in size. Ascending aorta: The unindexed ascending aorta is mildly dilated at 3.7 cm Aortic arch: The aortic arch is appears normal. Pericardium: There is no significant pericardial effusion. Pulmonary arteries: Systolic pressure can not be accurately estimated. Systemic veins: Inferior vena cava: Not well visualized. Measurements Left ventricle Value Ref Right atrium continued Value Ref RAGHAVENDRA, LAX 4.8 cm 4.2 - 5.8 ML dim, ES, A4C 4.2 cm 2.6 - 4.4 ESD, LAX 3.3 cm 2.5 - 4.0 Estimated RAP 8 mm Hg --------- FS, LAX 30 % 25 - 43 PW, ED, LAX 1.0 cm 0.6 - 1.0 Aortic valve Value Ref E', med odin, TDI 8.2 cm/sec >=7.0 Odin diam, ED 2.4 cm --- ------ E/e', med odin, 7 Odin diam/bsa, ED 1.0 cm/m^2 ------ --- TDI Peak v, S 0.89 m/sec --------- Peak grad, S 3.0 mm Hg --------- LVOT Value Ref Peak ebony, S 0.66 m/sec Mitral valve Value Ref Peak E 0.57 m/sec --------- Ventricular septum Value Ref Decel time 124 ms --------- IVS, ED 1.0 cm 0.6 - 1.0 Pulmonic valve Value Ref Right ventricle Value Ref Peak v, S 0.71 m/sec --------- RAGHAVENDRA, LAX 3.2 cm Peak grad, S 2.0 mm Hg --------- RAGHAVENDRA minor ax, 3.3 cm 1.9 - 3.5 A4C mid Aortic root Value Ref Root diam 3.5 cm <4.4 Left atrium Value Ref AP dim, ES 3.50 cm 3.00 - Ascending aorta Value Ref 4.00 AAo AP diam, S 3.7 cm --------- ML dim, A4C 4.0 cm SI dim, A4C 5.5 cm Aortic arch Value Ref Vol/bsa, ES, 1-p 30 ml/m^2 12 - 37 Arch diam 3.1 cm --------- A4C Vol/bsa, ES, A/L 29 ml/m^2 16 - 34 Right atrium Value Ref SI dim, ES 4.6 cm 3.4 - 5.3 Legend: (L) and (H) neil values outside specified reference range. Prepared and electronically signed by Juanito Levy MD 04/11/2019 15:26
[2019-04-11] MEDS: ceFAZolin 1 GM ADVAN(*) 1 GM in NS 0.9% 50 ML* 50 ML IVPB SCH (16:11)
--- NOTE | 2019-04-11 16:42 | CONSULT ---
Subjective Date of Service: 04/11/19 Interval History: Date of admission and consult 04/11/2019 PCP: Dr. Gurrola Service: Orthopaedics/Dr. Mckeon CC: Elective hip replacement surgery Reason for consult: Intraoperative atrial fibrillation HPI Mr. Quiroz is a 68 year old man who is s/p left hip replacement today. During the surgery he went into atrial fibrillation. He was lightheaded with low BP after first sitting up after oral metoprolol now resolved with laying down and IV fluids (he states same thing happened after prior hip surgery). He is currently asymptomatic without chest pain, dyspnea or palpitations. He has no history of atrial fibrillation. 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 Labs were checked as below significant for k 3.6 given 20 meq potassium Pmhx: gerd obesity prostate cancer surgical history: inguinal hernia repair Prostatectomy R hip replaced 2011 fam hx: parkinsons prostate cancer melanoma soc hx: Ret[employer] no tobacco occasional alcohol no drugs allergies: nkda Medications Active Medications: Acetaminophen (Tylenol Tab*) 975 mg PO Q8HR [facility] Last Admin: 04/11/19 13:20 Dose: Not Given Aspirin (Aspirin Tab*) 325 mg PO 0600,1800 [facility] Atorvastatin Calcium (Lipitor*) 20 mg PO BEDTIME [facility] Bisacodyl (Dulcolax Supp*) 10 mg [place] DAILY PRN PRN Reason: CONSTIPATION Cyclobenzaprine HCl (Flexeril Tab*) 10 mg PO Q6H PRN PRN Reason: SPASMS Diphenhydramine HCl (Benadryl Iv*) 25 mg IV Q6H PRN PRN Reason: PRURITIS Diphenhydramine HCl (Benadryl Po*) 25 mg PO Q6H PRN PRN Reason: PRURITIS Docusate Sodium (Colace Cap*) 100 mg PO BID [facility] Tranexamic Acid 1,000 mg/ (Sodium Chloride) 60 mls @ 120 mls/hr IV ONCE Stop: 04/11/19 23:59 Cefazolin Sodium 1 gm/ Sodium (Chloride) 50 mls @ 200 mls/hr IVPB Q8H [facility] Stop: 04/12/19 08:14 Lactated Ringer's (Lactated Ringers 1000 Ml Bag*) 1,000 mls @ 100 mls/hr IV PER RATE [facility] Last Admin: 04/11/19 12:49 Dose: 100 mls/hr Lactulose (Lactulose*) 30 ml PO BID PRN PRN Reason: CONSTIPATION Magnesium Hydroxide (Milk Of Magnesia Liq*) 30 ml PO BID [facility] Magnesium Hydroxide (Milk Of Magnesia Liq*) 30 ml PO Q6H PRN PRN Reason: CONSTIPATION Mometasone Furoate/Formoterol Fumar (Dulera 100/5 Mdi*) 2 puff INH BID [facility] Morphine Sulfate (Morphine Inj (Syringe))*) 2 mg IV Q4H PRN PRN Reason: Pain - Unrelieved Multivitamins (Theragran Tab*) 1 tab PO DAILY [facility] Nystatin (Nystatin Cream*) 1 applic TOPICAL BID [facility] Ondansetron HCl (Zofran Inj*) 4 mg IV ONCE PRN PRN Reason: NAUSEA/VOMITING Ondansetron HCl (Zofran Inj*) 4 mg IV Q6H PRN PRN Reason: NAUSEA Ondansetron HCl (Zofran Odt Tab*) 4 mg PO Q6H PRN PRN Reason: NAUSEA Oxycodone HCl (Roxycodone Tab*) 10 mg PO Q4H PRN PRN Reason: Pain - Breakthrough Oxycodone/Acetaminophen (Percocet 5/325 Tab*) 1 tab PO Q4H PRN PRN Reason: PAIN - MODERATE Oxycodone/Acetaminophen (Percocet 5/325 Tab*) 2 tab PO Q4H PRN PRN Reason: PAIN - SEVERE Polyethylene Glycol/Electrolytes (Miralax*) 17 gm PO DAILY PRN PRN Reason: Constipation Temazepam (Restoril Cap*) 15 mg PO BEDTIME PRN PRN Reason: INSOMNIA Tramadol HCl (Ultram*) 50 mg PO Q6H PRN PRN Reason: PAIN - MODERATE Home Medications: Ascorbic Acid TAB* [Vitamin C TAB*] 500 mg PO BEDTIME 07/06/14 [History Confirmed 03/30/19] Hydrochlorothiazide TAB* [Hydrodiuril TAB*] 25 mg PO BEDTIME 07/06/14 [History Confirmed 04/11/19] Multivitamin [Multivitamins] 1 cap PO BEDTIME 07/06/14 [History Confirmed ] Lawley-3 Fatty Acids/Fish Oil [Lawley 3] 1 cap PO BEDTIME 07/06/14 [History Confirmed 04/11/19] Simvastatin [Zocor] 40 mg PO BEDTIME 07/06/14 [History Confirmed 04/11/19] Amlodipine Besylate [Norvasc] 5 mg PO BEDTIME 03/30/19 [History Confirmed ] Budesonide/Formote 80/4.5(NF) [Symbicort 80/4.5 (NF)] 1 puff INH BID 03/30/19 [ History Confirmed 04/11/19] Ibuprofen TAB* [Motrin TAB* 800 MG] 800 mg PO Q8H PRN 03/30/19 [History Confirmed 04/11/19] Review of Systems - Measurements Intake and Output: Intake and Output Last 24 Hours 04/09/19 04/10/19 04/11/19 04/12/19 06:59 06:59 06:59 06:59 Intake Total 1075 Output Total 550 Balance 525 Weight 248 lb 1.6 oz Intake: IV Fluids 600 LR 500 NS 100ML, Cefazolin 2G 100 Oral 475 Output: Hunter 550 - Review of Systems Constitutional Symptoms: Negative: Weight Gain, Weight Loss, Weakness, Fatigue, Fever, Night Sweats Dermatology: Negative: Rash, Skin Lesions HEENT: Negative: Change in Hearing, Vertigo Eyes: Negative: Change in Vision, Double Vision Thyroid: Negative: Palpitations, Weight Loss, Weight Gain Pulmonary: Negative: Cough, Sputum, Hemoptysis, Respiratory Distress, Shortness of Breath Cardiology: Negative: Chest Pain, Shortness of Breath, Palpitations, Edema, Syncope, Paroxysmal Nocturnal Dyspnea, Orthopnea Gastroenterology: Negative: Abdominal Pain, Nausea, Vomiting, Anorexia, Blood in Stools, Haematemesis Genital - Urinary: Negative: Dysuria, Hematuria Musculoskeletal: Negative: Joint Pain, Joint Stiffness Endocrinology: Negative: Diabetes, Polydipsia, Polyuria, Other Hematologic/Lymphatic: Positive: Use of Antiplatelet Drugs Negative: Use of Anticoagulant Neurology: Negative: Hx of Stroke\TIA, Hx Seizures Psychiatry: Negative: Unusual Anxiety, Suicidal Ideation Allergic/Immunologic: Negative: Hx HIV, Immunocompromise Review of Systems Statement: All other review of systems negative, unless stated above. Objective Vital Signs: Temp Pulse Resp BP Pulse Ox 97.8 F 89 16 107/69 95 04/11/19 14:42 04/11/19 14:49 04/11/19 13:56 04/11/19 14:49 04/11/19 14:42 Oxygen Devices in Use Now: None Appearance: nad, pleasant Ears/Nose/Mouth/Throat: Clear Oropharnyx, Mucous Membranes Moist Neck: NL Appearance and Movements; NL JVP, Trachea Midline Respiratory: Symmetrical Chest Expansion and Respiratory Effort, Clear to Auscultation Cardiovascular: No Edema, - - irregularly irregular, no significant murmur Abdominal: NL Sounds; No Tenderness; No Distention Extremities: No Edema Skin: No Rash or Ulcers Neurological: Alert and Oriented x 3 Laboratory Results: 04/11/19 12:47 04/11/19 12:47 TSH 1.00 mcIU/mL (0.34-5.60) 04/11/19 12:47 mg 2.1 04/11/19 12:47 Troponin I 0.01 Diagnostic Imaging: ekg 04/11/2019 afib 85 bpm, LAD, no ischemic changes ekg 03/30/2019 nsr, lad Transthoracic Echocardiogram Study Date: 04/11/2019 Summary: - Left ventricle: The cavity size is normal. Wall thickness is mildly increased. Systolic function is normal. The estimated ejection fraction is 60-65%. Wall motion is normal; there are no regional wall motion abnormalities. - Right ventricle: The cavity size is normal. Systolic function is normal. - Left atrium: The atrium is normal in size. - Pulmonary arteries: Systolic pressure can not be accurately estimated. - No significant valvular abnormalities noted. Recommendations: None prior for comparison. Patient is in atrial fibrillation at time of study. EKG Data: Mr. Quiroz is a 68 y Assessment/Plan Mr. Quiroz is a 68 year old man with asymptomatic atrial fibrillation provoked during hip surgery of < 24 hours duration, chads2-vasc score of 1 - Would monitor overnight hopefully spontaneously converts to sinus rhythm in that case can continue with high dose aspirin for DVT prophylaxis which he is taking. - If patient does not convert to sinus rhythm spontaneously, cardioversion will be considered, he is to be kept NPO. Technically of such short duration and low chads2-vasc score this can be done without anticoagulation but I would defer to Dr. Osborne who is on service tomorrow (Thursday 04/12). Thank you for allowing me to participate in the cardiovascular care of this patient. Please do not hesitate to contact me with questions or concerns.
[2019-04-11] MEDS: Aspirin TAB* 325 MG PO SCH (18:27)
--- NOTE | 2019-04-11 18:46 | CONS ---
CC: Dr. Mckeon; Dr. Levy; Dr. Gurrola* CONSULTATION REPORT: DATE OF CONSULT: 04/11/19 PRIMARY CARE PROVIDER: Dr. Gurrola. ORTHOPEDIC SURGEON REQUESTING CONSULT: Dr. Mckeon. CARDIOLOGY: Dr. Juanito Levy. REASON FOR CONSULT: Atrial fibrillation developed intraoperatively and postoperatively from left hip replacement. CHIEF COMPLAINT: Blurry vision and feeling "woozy." HISTORY OF PRESENT ILLNESS: Alex Quiroz is a 68-year-old male with history of hypertension and prostate cancer, status post prostatectomy who developed intraoperative atrial fibrillation that was rate controlled. Postoperatively, he received a dose of 25 mg of metoprolol x1. He also received medications for pain. When he was sat up in his bed in our surgical unit for the first time after surgery, he felt blurry vision and dizzy. At that point, he was noted to have systolic pressures in the 60s. He was given a bolus of intravenous fluids and his symptoms resolved almost instantaneously after he was laid flat. Shortly thereafter, his blood pressure was back to 115 systolically. The patient was seen by Dr. Juanito Levy in consultation with a new diagnosis of atrial fibrillation that was probably provoked by surgery. The patient himself feels no chest pain, no shortness of breath, no palpitations, and otherwise apart from the episode of dizziness; lightheadedness; and blurry vision that now resolved, feels well. Of note, the patient's blood glucose level was 105. A consult was requested from Dr. Mckeon in regards of the patient's intraoperative complications with atrial fibrillation. PAST MEDICAL HISTORY: 1. History of hypertension. 2. History of prostate cancer, status post prostatectomy. 3. History of hip surgery on the right in 2011. 4. Inguinal hernia repair remotely on the right. 5. Dyslipidemia. 6. Shingles episode in 1981. MEDICATIONS: At home include: 1. Amlodipine 5 mg at bedtime. 2. Ibuprofen 800 mg every 8 hours p.r.n. 3. Hydrochlorothiazide 25 mg at bedtime. 4. Symbicort 80/4.5 one puff inhalation b.i.d. 5. Zocor 40 mg at bedtime. 6. [place]-3 fatty acids 1 capsule at bedtime. 7. Multivitamin 1 tablet daily. 8. Ascorbic acid 500 mg daily. FAMILY HISTORY: Father with history of Parkinson's, prostate cancer, and melanoma. with prostate cancer at the age of 74. SOCIAL HISTORY: The patient is a castano. Retired from the [employer] where he worked for 22 years. He denies any alcohol, tobacco, or drug use. He is a full code and his surrogate is his . REVIEW OF SYSTEMS: Please see history of present illness. All the remaining 12 systems were reviewed with the patient and were otherwise negative. PHYSICAL EXAMINATION: Blood pressure of 129/53, heart rate of 83 and regular, respiratory rate 16, oxygen saturation 98% on room air, temperature 97.9. General: The patient is a very pleasant 68-year-old male who is in no acute distress, alert, awake, and oriented x3. HEENT: Head is atraumatic and normocephalic. Eyes: Pupils are equally reactive to light and accommodation. Oropharynx clear. Mucosa moist. Neck: Supple. No JVD. No bruits bilaterally. Cardiovascular: Irregularly irregular rhythm. No murmurs. Respiratory: Clear to auscultation bilaterally. Abdomen: Soft and nontender. Bowel sounds present in all 4 quadrants. Extremities: There is no edema. Pulses are +2 bilaterally. No clubbing or cyanosis. In the postoperative hip, dressings are in place. No evidence of hematoma noted, but dressing were not removed. Pedal pulses are +2 bilaterally. There is no clubbing or cyanosis. Neuro Evaluation: Speech clear. Cranial nerves II through XII grossly intact. Motor strength is 5/5 bilaterally. DIAGNOSTIC STUDIES/LAB DATA: Laboratory Data: Sodium of 136, potassium of 3.6 , chloride of 102, carbon dioxide 30, BUN 16, creatinine 0.83. TSH was 1.0. Troponin of 0.01. Magnesium was 2.1. White blood cell count of 12.5, hemoglobin of 14.0, hematocrit of 51, and platelets of 193. The patient's echo is pending at the time of dictation. The patient's EKG showed atrial fibrillation with a heart rate of 85 beats per minute with no acute ST changes. ASSESSMENT AND PLAN: In regards to the patient's atrial fibrillation, likely stress related to surgery contributed to the cardiac arrhythmia. The patient is , otherwise, asymptomatic. We will continue trending troponin and telemetry monitoring for the time being. I appreciate Dr. Levy's consult. A transthoracic echocardiogram is pending at the time of this dictation. We will give the patient a dose of potassium to optimize his potassium level. At this point, due to the patient's hypotension and vagal response, his beta michelle was going to be discontinued. At this point, because of the patient's postoperative state, we will not place the patient on anticoagulation and observe for the next [address] the patient n.p.o. in the morning in case he required cardioversion. The patient is going to be placed and continued on aspirin for DVT prophylaxis by Dr. Mckeon status post left hip surgery The patient's code status is full and his surrogate is his . Thank you very much for allowing our service to see the patient in consultation. We will follow with the patient on a daily basis. TIME SPENT: Approximately 62 minutes were spent on consultation of this patient , more than half that time was spent [id number] with the patient during the interview and physical exam. [id number]/CPS #: [id number] MTDD
[2019-04-11] MEDS: Mometasone/Formoter 100/5 MDI INH SCH (19:59)
[2019-04-11] MEDS ORDERED: amLODIPine TAB* 5 MG PO SCH (21:00)
[2019-04-11] MEDS ORDERED: Metoprolol Tartrate TAB* 25 MG PO SCH (21:00)
[2019-04-11] MEDS ORDERED: Hydrochlorothiazide TAB* 25 MG PO SCH (21:00)
[2019-04-11] MEDS: Magnesium Hydroxide LIQ* 30 ML UDC PO SCH (21:07)
[2019-04-11] MEDS: Nystatin CREAM* 15 GM TUBE TOPICAL SCH (21:07)
[2019-04-11] MEDS: Docusate CAP* 100 MG PO SCH (21:07)
[2019-04-11] MEDS: Atorvastatin* 20 MG TAB PO SCH (21:07)
[2019-04-12] MEDS: ceFAZolin 1 GM ADVAN(*) 1 GM in NS 0.9% 50 ML* 50 ML IVPB SCH ×2 (00:38→08:22)
[2019-04-12] MEDS: oxyCODONE/Acetamin 5/325 MG* TAB PO PRN ×3 (03:21→16:38)
[2019-04-12] MEDS: Lactated Ringers 1000 ML Bag* 1,000 ML IV SCH (04:46)
[2019-04-12 04:50] LABS: Hematocrit 37 % (42-52); Hemoglobin 12.7 g/dL (14.0-18.0); Mean Platelet Volume 8.1 fL (7.4-10.4); Platelet Count 168 10^3/uL (150-450)
[2019-04-12 05:06] LABS: BUN/Creatinine Ratio 18.5 (8-20); Calcium 8.3 mg/dL (8.6-10.3); EGFR African American 114.7 (>60); EGFR Non-African American 94.8 (>60); Potassium 3.6 mmol/L (3.5-5.0)
[2019-04-12] MEDS: Aspirin TAB* 325 MG PO SCH ×2 (05:25→17:39)
[2019-04-12] MEDS: Acetaminophen TAB* 325 MG PO SCH ×3 (05:25→20:40)
--- NOTE | 2019-04-12 07:19 | PN ---
Progress Note - Progress Note Date of Service: 04/12/19 Note: POD# 1, VSStable. X-ray after surgery good and AF started during surgery and some since. Awake, alert, and no real distress this AM. Left Hip dry. Left foot DP is 2 plus. All active movements done. Imp: Stable. The AF issue per cardiology. Please discuss any increased anticoagulation issues with me today and tomorrow, Linda. Hct is 37%. K is still 3.6 after some K. Please give more.
[2019-04-12] MEDS: Mometasone/Formoter 100/5 MDI INH SCH ×3 (09:13→19:14)
[2019-04-12] MEDS ORDERED: Potassium Chloride* LIQUID 20 MEQ/15 ML UDC PO ONE (09:24)
[2019-04-12] MEDS: Magnesium Hydroxide LIQ* 30 ML UDC PO SCH ×2 (10:09→20:37)
[2019-04-12] MEDS: Vitamin THERAPEUTIC TAB PO SCH (10:09)
[2019-04-12] MEDS: Docusate CAP* 100 MG PO SCH ×2 (10:09→20:37)
[2019-04-12] MEDS: Nystatin CREAM* 15 GM TUBE TOPICAL SCH ×2 (10:09→20:45)
--- NOTE | 2019-04-12 15:28 | PN ---
Subjective Date of Service: 04/12/19 Interval History: Mr. Quiroz states that he felt dizzy, LH, blurred vision with laying to sitting or sitting to standing yesterday. He states that he had some of these symptoms this morning, but none this afternoon. He denies palpitations. He has been up ambulating without difficulty; stairs without difficulty. He had a BM today and c/o abdominal distention/bloating earlier today. He rates L hip pain at 0/ 10 currently. Objective Active Medications: Acetaminophen (Tylenol Tab*) 975 mg PO Q8HR [facility] Last Admin: 04/12/19 12:45 Dose: Not Given Aspirin (Aspirin Tab*) 325 mg PO 0600,1800 [facility] Last Admin: 04/12/19 05:25 Dose: Not Given Atorvastatin Calcium (Lipitor*) 20 mg PO BEDTIME [facility] Last Admin: 04/11/19 21:07 Dose: 20 mg Bisacodyl (Dulcolax Supp*) 10 mg [place] DAILY PRN PRN Reason: CONSTIPATION Cyclobenzaprine HCl (Flexeril Tab*) 10 mg PO Q6H PRN PRN Reason: SPASMS Diphenhydramine HCl (Benadryl Iv*) 25 mg IV Q6H PRN PRN Reason: PRURITIS Diphenhydramine HCl (Benadryl Po*) 25 mg PO Q6H PRN PRN Reason: PRURITIS Docusate Sodium (Colace Cap*) 100 mg PO BID [facility] Last Admin: 04/12/19 10:09 Dose: 100 mg Lactated Ringer's (Lactated Ringers 1000 Ml Bag*) 1,000 mls @ 100 mls/hr IV PER RATE [facility] Last Admin: 04/12/19 04:46 Dose: 100 mls/hr Lactulose (Lactulose*) 30 ml PO BID PRN PRN Reason: CONSTIPATION Magnesium Hydroxide (Milk Of Magnesia Liq*) 30 ml PO BID [facility] Last Admin: 04/12/19 10:09 Dose: 30 ml Magnesium Hydroxide (Milk Of Magnesia Liq*) 30 ml PO Q6H PRN PRN Reason: CONSTIPATION Mometasone Furoate/Formoterol Fumar (Dulera 100/5 Mdi*) 2 puff INH BID [facility] Last Admin: 04/12/19 10:10 Dose: 2 puff Morphine Sulfate (Morphine Inj (Syringe))*) 2 mg IV Q4H PRN PRN Reason: Pain - Unrelieved Multivitamins (Theragran Tab*) 1 tab PO DAILY [facility] Last Admin: 04/12/19 10:09 Dose: 1 tab Nystatin (Nystatin Cream*) 1 applic TOPICAL BID [facility] Last Admin: 04/12/19 10:09 Dose: 1 applic Ondansetron HCl (Zofran Inj*) 4 mg IV ONCE PRN PRN Reason: NAUSEA/VOMITING Ondansetron HCl (Zofran Inj*) 4 mg IV Q6H PRN PRN Reason: NAUSEA Ondansetron HCl (Zofran Odt Tab*) 4 mg PO Q6H PRN PRN Reason: NAUSEA Oxycodone HCl (Roxycodone Tab*) 10 mg PO Q4H PRN PRN Reason: Pain - Breakthrough Oxycodone/Acetaminophen (Percocet 5/325 Tab*) 1 tab PO Q4H PRN PRN Reason: PAIN - MODERATE Oxycodone/Acetaminophen (Percocet 5/325 Tab*) 2 tab PO Q4H PRN PRN Reason: PAIN - SEVERE Last Admin: 04/12/19 12:42 Dose: 2 tab Polyethylene Glycol/Electrolytes (Miralax*) 17 gm PO DAILY PRN PRN Reason: Constipation Temazepam (Restoril Cap*) 15 mg PO BEDTIME PRN PRN Reason: INSOMNIA Tramadol HCl (Ultram*) 50 mg PO Q6H PRN PRN Reason: PAIN - MODERATE Vital Signs: Temp Pulse Resp BP Pulse Ox 99.4 F 81 18 124/60 94 04/12/19 11:13 04/12/19 11:13 04/12/19 14:33 04/12/19 11:13 04/12/19 11:13 Oxygen Devices in Use Now: None Appearance: Mr. Quiroz is an obese white male who is laying in bed. He appears comfortable and in no acute distress. Eyes: No Scleral Icterus, PERRLA Ears/Nose/Mouth/Throat: NL Teeth, Lips, Gums, Clear Oropharnyx, Mucous Membranes Moist Neck: NL Appearance and Movements; NL JVP, Trachea Midline Respiratory: Symmetrical Chest Expansion and Respiratory Effort, Clear to Auscultation Cardiovascular: NL Sounds; No Murmurs; No JVD, RRR, No Edema, - - Tele: NSR Abdominal: NL Sounds; No Tenderness; No Distention, No Hepatosplenomegaly Extremities: No Edema, No Clubbing, Cyanosis, - - CDI dressing in place to L hip ; distal sensation intact; pulses palpable Neurological: Alert and Oriented x 3, NL Muscle Strength and Tone, - - CN II- XII grossly intact Result Diagrams: 04/12/19 04:38 04/12/19 04:38 Assess/Plan/Problems-Billing Assessment: Mr. Quiroz is a 68 yom PMHx HTN, HLD, prostate cancer s/p prostatectomy who presented for elective L ABHISHEK and was found to be in atrial fibrillation during his surgical procedure. - Patient Problems (1) Status post total hip replacement, left Comment: -management per ortho team (2) Atrial fibrillation Comment: -patient found to be in AF catarina-operatively -cardiology following -CV planned, but patient returned to NSR spontaneously -DIANA EF 60-65%, no significant valvular abnormalities -trop negative x4 -EKG initially showing AF, now NSR; has been NSR on tele today -continue tele -plan for overnight pulse oximetry (3) Hypertension Comment: -SBP 110-120's -home medications amlodipine 5, HCTZ 25 on hold -restart as needed (4) Hyperlipidemia Comment: -continue statin (5) DVT prophylaxis Comment: -per ortho: asa 325 PO BID (6) Full code status Status and Disposition: Inpatient. Discharge per ortho team.
[2019-04-12] MEDS: Atorvastatin* 20 MG TAB PO SCH (20:45)
[2019-04-13 05:39] LABS: Hematocrit 34 % (42-52); Hemoglobin 11.9 g/dL (14.0-18.0); Mean Platelet Volume 8.4 fL (7.4-10.4); Platelet Count 154 10^3/uL (150-450)
[2019-04-13] MEDS: Aspirin TAB* 325 MG PO SCH (05:44)
[2019-04-13] MEDS: oxyCODONE/Acetamin 5/325 MG* TAB PO PRN (05:44)
[2019-04-13] MEDS: Acetaminophen TAB* 325 MG PO SCH (06:18)
[2019-04-13 07:39] VITALS: BP 141/69
[2019-04-13] MEDS: Mometasone/Formoter 100/5 MDI INH SCH (07:59)
[2019-04-13] MEDS: Docusate CAP* 100 MG PO SCH (08:26)
[2019-04-13] MEDS: Magnesium Hydroxide LIQ* 30 ML UDC PO SCH (08:26)
--- NOTE | 2019-04-13 08:26 | PN ---
Subjective Date of Service: 04/13/19 Interval History: Mr. Quiroz is feeling well this morning. Pain is essentially nonexistent. He got up this morning without significant difficulty. Denies CP, SOB, palpitations. Anxious to return home today. No concerns from nursing. Family History: Unchanged from Admission Social History: Unchanged from Admission Past Medical History: Unchanged from Admission Objective Active Medications: Acetaminophen (Tylenol Tab*) 975 mg PO Q8HR [facility] Aspirin (Aspirin Tab*) 325 mg PO 0600,1800 [facility] Atorvastatin Calcium (Lipitor*) 20 mg PO BEDTIME [facility] Bisacodyl (Dulcolax Supp*) 10 mg [place] DAILY PRN CONSTIPATION Cyclobenzaprine HCl (Flexeril Tab*) 10 mg PO Q6H PRN SPASMS Diphenhydramine HCl (Benadryl Iv*) 25 mg IV Q6H PRN PRURITIS Diphenhydramine HCl (Benadryl Po*) 25 mg PO Q6H PRN PRURITIS Docusate Sodium (Colace Cap*) 100 mg PO BID [facility] Lactated Ringer's (Lactated Ringers 1000 Ml Bag*) 1,000 mls @ 100 mls/hr IV PER RATE [facility] Lactulose (Lactulose*) 30 ml PO BID PRN CONSTIPATION Magnesium Hydroxide (Milk Of Magnesia Liq*) 30 ml PO BID [facility] Magnesium Hydroxide (Milk Of Magnesia Liq*) 30 ml PO Q6H PRN CONSTIPATION Mometasone Furoate/Formoterol Fumar (Dulera 100/5 Mdi*) 2 puff INH BID [facility] Morphine Sulfate (Morphine Inj (Syringe))*) 2 mg IV Q4H PRN Pain - Unrelieved Multivitamins (Theragran Tab*) 1 tab PO DAILY [facility] Nystatin (Nystatin Cream*) 1 applic TOPICAL BID [facility] Ondansetron HCl (Zofran Inj*) 4 mg IV ONCE PRN NAUSEA/VOMITING Ondansetron HCl (Zofran Inj*) 4 mg IV Q6H PRN NAUSEA Ondansetron HCl (Zofran Odt Tab*) 4 mg PO Q6H PRN NAUSEA Oxycodone HCl (Roxycodone Tab*) 10 mg PO Q4H PRN Pain - Breakthrough Oxycodone/Acetaminophen (Percocet 5/325 Tab*) 1 tab PO Q4H PRN PAIN - MODERATE Oxycodone/Acetaminophen (Percocet 5/325 Tab*) 2 tab PO Q4H PRN PAIN - SEVERE Polyethylene Glycol/Electrolytes (Miralax*) 17 gm PO DAILY PRN Constipation Temazepam (Restoril Cap*) 15 mg PO BEDTIME PRN INSOMNIA Tramadol HCl (Ultram*) 50 mg PO Q6H PRN PAIN - MODERATE Vital Signs - 8 hr 04/13/19 04/13/19 04/13/19 03:11 05:44 07:38 Temperature 99.1 F 98.8 F Pulse Rate 89 73 Respiratory 18 20 16 Rate Blood Pressure 126/76 141/69 (mmHg) O2 Sat by Pulse 99 94 Oximetry Oxygen Devices in Use Now: None Appearance: Middle-aged male sitting in chair in NAD Ears/Nose/Mouth/Throat: Mucous Membranes Moist Neck: NL Appearance and Movements; NL JVP, Trachea Midline Respiratory: Symmetrical Chest Expansion and Respiratory Effort, Clear to Auscultation Cardiovascular: NL Sounds; No Murmurs; No JVD, RRR Abdominal: NL Sounds; No Tenderness; No Distention Extremities: No Edema Neurological: Alert and Oriented x 3 Lines/Tubes/Other Access: Clean, Dry and Intact Peripheral IV Nutrition: Taking PO's Result Diagrams: 04/13/19 05:08 04/12/19 04:38 Assess/Plan/Problems-Billing Assessment: Mr. Quiroz is a 68 yo M PMH of HTN, HLD, prostate cancer s/p prostatectomy; who presented for elective L ABHISHEK and was found to be in atrial fibrillation during his surgical procedure. - Patient Problems (1) Status post total hip replacement, left Code(s): Z96.642 - PRESENCE OF LEFT ARTIFICIAL HIP JOINT Comment: - Management per Ortho (2) Atrial fibrillation Code(s): I48.91 - UNSPECIFIED ATRIAL FIBRILLATION Comment: - Found to be in AF catarina-operatively - Trop negative x4 - Cardiology following; CV planned, but patient returned to NSR spontaneously - DIANA shows EF 60-65%, no significant valvular abnormalities - EKG initially showing AF, now NSR; has been NSR on tele (3) Hypertension Code(s): I10 - ESSENTIAL (PRIMARY) HYPERTENSION Comment: - Normotensive - Resume home meds (amlodipine, HCTZ) at d/c (4) Hyperlipidemia Code(s): E78.5 - HYPERLIPIDEMIA, UNSPECIFIED Comment: - Continue atorvastatin (5) DVT prophylaxis Code(s): Z29.9 - ENCOUNTER FOR PROPHYLACTIC MEASURES, UNSPECIFIED Comment: - Full strength aspirin per Ortho (6) Full code status Code(s): Z78.9 - OTHER SPECIFIED HEALTH STATUS Comment: Status and Disposition: Dispo per Ortho. Medically stable for d/c from Hospitalist standpoint. Thank you for this consultation. Please call with any questions or concerns. Attending: Lennie Cervantes
[2019-04-13] MEDS: Nystatin CREAM* 15 GM TUBE TOPICAL SCH (09:14)
[2019-04-13] MEDS: Vitamin THERAPEUTIC TAB PO SCH (09:14)
--- NOTE | 2019-04-13 09:39 | PN ---
Progress Note - Progress Note Date of Service: 04/13/19 SOAP: Subjective: [Patient seen sitting in chair. He is feeling well, no complaints of pain, CP/ SOB, heart palpitations, f/c. He is ready to go home. He as already completed PT this morning with no issue. Objective: [General: A&Ox3. NAD Left hip: Dressing changed today, incision C/D/I with no warmth, erythema, or bruising. Non-tender to palpation around incision, post/ant thigh and calf. Able to stand with walker for dressing change with no issue. No swelling of calf or palpable cords. + Df/pf L ankle, + f/e L knee.] Assessment: [POD#2 L ABHISHEK] Plan: [New AF that spontaneously resolved, has been on tele with no new issues. Signed off on by hosp. D/C home today. Patient personal care attendant picked up his Percocet yesterday from [facility] pharm. DVT ppx with ASA 325 BID F/U with Dr. Mckeon 04/26/18 in office Vital Signs Temp Pulse Resp BP Pulse Ox 98.8 F 73 18 141/69 94 04/13/19 07:38 04/13/19 07:38 04/13/19 09:14 04/13/19 07:38 04/13/19 07:38 Laboratory Last Values WBC 12.5 10^3/uL (3.5-10.8) H 04/11/19 12:47 RBC 4.83 10^6 /uL (4.18-5.48) 04/11/19 12:47 Hgb 11.9 g/dL (14.0-18.0) L 04/13/19 05:08 Hct 34 % (42-52) L 04/13/19 05:08 MCV 85 fL (80-94) 04/11/19 12:47 MCH 29 pg (27-31) 04/11/19 12:47 MCHC 34 g/dL (31-36) 04/11/19 12:47 RDW 15 % (10-15) 04/11/19 12:47 Plt Count 154 10^3/uL (150-450) 04/13/19 05:08 MPV 8.4 fL (7.4-10.4) 04/13/19 05:08 Neut % (Auto) 83.7 % 04/11/19 12:47 Lymph % (Auto) 9.6 % 04/11/19 12:47 [place] % (Auto) 6.2 % 04/11/19 12:47 Eos % (Auto) 0.3 % 04/11/19 12:47 Baso % (Auto) 0.2 % 04/11/19 12:47 Absolute Neuts (auto) 10.5 10^3/ul (1.5-7.7) H 04/11/19 12:47 Absolute Lymphs (auto) 1.2 10^3/ul (1.0-4.8) 04/11/19 12:47 Absolute Monos (auto) 0.8 10^3/ul (0-0.8) 04/11/19 12:47 Absolute Eos (auto) 0.0 10^3/ul (0-0.6) 04/11/19 12:47 Absolute Basos (auto) 0.0 10^3/ul (0-0.2) 04/11/19 12:47 Absolute Nucleated RBC 0.0 10^3/ul 04/11/19 12:47 Nucleated RBC % 0.1 04/11/19 12:47 Sodium 134 mmol/L (135-145) L 04/12/19 04:38 Potassium 3.6 mmol/L (3.5-5.0) 04/12/19 04:38 Chloride 101 mmol/L (101-111) 04/12/19 04:38 Carbon Dioxide 28 mmol/L (22-32) 04/12/19 04:38 Anion Gap 5 mmol/L (2-11) 04/12/19 04:38 BUN 15 mg/dL (6-24) 04/12/19 04:38 Creatinine 0.81 mg/dL (0.67-1.17) 04/12/19 04:38 Est GFR ( Amer) 114.7 (>60) 04/12/19 04:38 Est GFR (Non-Af Amer) 94.8 (>60) 04/12/19 04:38 BUN/Creatinine Ratio 18.5 (8-20) 04/12/19 04:38 Glucose 116 mg/dL (70-100) H 04/12/19 04:38 POC Glucose (mg/dL) 107 mg/dL (70-100) H 04/11/19 14:07 Calcium 8.3 mg/dL (8.6-10.3) L 04/12/19 04:38 Magnesium 2.1 mg/dL (1.9-2.7) 04/11/19 12:47 Troponin I 0.01 ng/mL (<0.03) 04/12/19 00:23 TSH 1.00 mcIU/mL (0.34-5.60) 04/11/19 12:47 ]
--- NOTE | 2019-04-13 09:41 | DS ---
Orthopedic Discharge Summary - Discharge Summary Date of Admission:04/11/19 Date of Discharge: 04/13/19 Date of Surgery: 04/11/19 Attending Orthopedic Provider: Dr. Mckeon Pre-operative Diagnosis: Left Hip arthritis Operative Procedure: Left hip arthroplasty Disposition of Patient: Home Condition of Patient: Stable History: RONDA COLBY is a 68 year old M with years of increasingly severe left hip pain. Patient has failed conservative management and has elected to undergo a left total hip replacement Hospital Course: RONDA was admitted to [facility] on 04/11/19. Patient underwent a left hip arthroplasty without complication followed by a brief recovery in PACU and transfer to the Short Stay Surgical Unit in stable condition. Our hospitalist service, physical therapy and occupational therapy also participated in this patients care. Post-op day 1: patient was alert and in no acute distress. Dressing was clean, dry and intact. Operative extremity dorsiflexion and plantarflexion intact, sensation intact to light touch distally , DP2+. Post-op day two: dressing was changed, incision was clean, dry and intact. Patient was deemed to be medically and orthopedically stable for discharge. Physical therapy goals were met. Home Medications Medication Instructions Recorded Confirmed Type Ascorbic Acid TAB* [Vitamin C 500 mg PO BEDTIME 07/06/14 03/30/19 History TAB*] Hydrochlorothiazide TAB* 25 mg PO BEDTIME 07/06/14 04/11/19 History [Hydrodiuril TAB*] Multivitamin [Multivitamins] 1 cap PO BEDTIME 07/06/14 03/30/19 History [place]-3 Fatty Acids/Fish Oil 1 cap PO BEDTIME 07/06/14 04/11/19 History [[place] 3 1,000 mg Softgel] Simvastatin [Zocor 40 MG (NF)] 40 mg PO BEDTIME 07/06/14 04/11/19 History Amlodipine Besylate [Norvasc] 5 mg PO BEDTIME 03/30/19 04/11/19 History Budesonide/Formote 80/4.5(NF) 1 puff INH BID 03/30/19 04/11/19 History [Symbicort 80/4.5 (NF)] Ibuprofen TAB* [Motrin TAB* 800 MG] 800 mg PO Q8H PRN 03/30/19 04/11/19 History Docusate CAP* [Colace Cap*] 100 mg PO BID cap 04/13/19 Rx oxyCODONE/Acetamin 5/325 MG* 1 tab PO Q4H PRN tab 04/13/19 Rx [Percocet 5/325 TAB*] oxyCODONE/Acetamin 5/325 MG* 2 tab PO Q4H PRN tab 04/13/19 Rx [Percocet 5/325 TAB*] Discharge Instructions following Orthopedic Surgery: Activity: * Weight Bearing as tolerated * Continue physical therapy and occupational therapy exercises as shown Hip replacements: Continue Hip Precautions- do not cross legs or bend greater than 90 degrees/squat Wound care: * OK to shower on post-op day 3, no bathing, swimming, or submerging wound. * Use gentle soap, pat dry. Cover with gauze, BENY wrap or tape. Call Orthopedic office for: * Increased drainage * Redness * Increased pain * Fever Go to ER with shortness of breath or chest pain/heart palpitations. Diet: * Regular diet * Increase fluids and fiber to prevent constipation. * Continue to use stool softeners, call office if no bowel motion within 48 hours. Medications See Home Medication List in your packet for medications that you should take after discharge. DVT Prophylaxis: Aspirin Dosin mg twice a day Pain Control: Percocet Dosin/325 mg 1-2 tabs by mouth every 4-6 hours as needed for pain. Maximum of 10 tabs per day. Please note that Percocet contains Tylenol (acetaminophen). Maximum daily dose of Tylenol is 4000 mg from all sources. Antibiotics are required prior to any dental work. FOLLOW UP: Follow up with on 04/26/18 or sooner if there is issue. Please call our office with any questions or concerns ([phone])
[2019-04-13] MEDS ORDERED: Bisacodyl SUPP* 10 MG SUPP PR PRN (10:39)
== END 2019-04-13 10:30 | disposition home health service (06) | DRG 470 ==
LOC: AA 05:34 → SSU 10:39
PROVIDERS: ADMIT Orthopaedic Surgery; ATTEND Orthopaedic Surgery
PROC: 0SRB02A Replacement of Left Hip Joint with Metal on Polyethylene Synthetic Substitute, Uncemented, Open Approach (ICD-10-PCS; principal; 2019-04-11 07:30)
DX: M16.12 Unilateral primary osteoarthritis, left hip (principal); I48.91 Unspecified atrial fibrillation; I95.9 Hypotension, unspecified; Z96.641 Presence of right artificial hip joint; E78.5 Hyperlipidemia, unspecified; M25.752 Osteophyte, left hip; K21.9 Gastro-esophageal reflux disease without esophagitis; E66.9 Obesity, unspecified; Z90.79 Acquired absence of other genital organ(s); Z68.34 Body mass index [BMI] 34.0-34.9, adult; Z85.46 Personal history of malignant neoplasm of prostate; Z87.891 Personal history of nicotine dependence
CPT/HCPCS: 36415; 72170; 80048; 83735; 84443; 84484; 85014; 85018; 85025; 85049; 88304; 88311; 93005; 93306; 94640; A9270-GY; C1713; C1776; C8929; G8978-GP-CL; G8979-GP-CI; G8987-GO-CK; G8988-GO-CK; G8989-GO-CK; J0690; J1885; J2001; J2250; J2704; J2795; J3010; J3490